=== PATIENT | female | born 1990 | race Asian ===

== ENCOUNTER 2019-08-10 14:49 | Emergency (ER) | payer OTHER ==
[~2019-08-10] VITALS: Ht 152.4 cm; Wt 49.9 kg
[2019-08-10 14:50] VITALS: BP_SYST 139
--- NOTE | 2019-08-10 14:55 | NUR ---
TRIAGED IN TRIAGE ROOM, DR HALEY EVALUATING PT IN TRIAGE ROOM.
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
--- NOTE | 2019-08-10 15:04 | NUR ---
WAITING IN ER WAITING ROOM WITH SPOUSE
--- NOTE | 2019-08-10 15:34 | NUR ---
Patient given written and verbal discharge instructions and verbalizes understanding. ER MD discussed with patient the results and treatment provided. Patient in stable condition. ID arm band removed. Rx of AUGMENTIN, MOTRIN given. Patient educated on pain management and to follow up with PMD. Pain Scale 0/10. Opportunity for questions provided and answered. Medication side effect fact sheet provided.
== END 2019-08-10 15:34 | disposition home or self-care (01) ==
LOC: SED 14:49
DX: S61.551A Open bite of right wrist, initial encounter (principal); W54.0XXA Bitten by dog, initial encounter; Y93.89 Activity, other specified; Y92.89 Other specified places as the place of occurrence of the external cause; Y99.8 Other external cause status
CPT/HCPCS: 99283